=== PATIENT | female | born 1950 | race Caucasian/White ===

== ENCOUNTER → 2017-09-15 | Outpatient (CLI) | payer OTHER ==
[~2017-09-15] MED LIST: LORA0.5T PO; TRAM50 PO; ZOLP5TAB3 PO
[2017-09-15 12:28] LABS: AUTOMATED NEUTROPHIL # 4.6 TH/MM3 (1.8-7.7); BASOPHIL % 0.4 % (0.0-2.0); EOSINOPHIL # 0.1 TH/MM3 (0-0.4); EOSINOPHIL % 1.8 % (0.0-4.0); HEMATOCRIT 39.3 % (35.0-46.0); HEMO FLAGS DIFF FINAL; LYMPH % 28.8 % (9.0-44.0); LYMPHOCYTE # 2.2 TH/MM3 (1.0-4.8); MEAN CELL VOLUME 87.7 FL (80.0-100.0); MEAN CORPUSCULAR HEMOGLOBIN 30.3 PG (27.0-34.0); MEAN CORPUSCULAR HGB CONC 34.5 % (32.0-36.0); MONO % 10.2 % (0.0-8.0); NEUT % 58.8 % (16.0-70.0); PLATELET COUNT 285 TH/MM3 (150-450); RED BLOOD COUNT 4.47 MIL/MM3 (4.00-5.30); RED CELL DISTRIBUTION WIDTH 13.2 % (11.6-17.2); WHITE BLOOD COUNT 7.8 TH/MM3 (4.0-11.0)
[2017-09-15 12:39] LABS: APTT (PATIENT) 29.3 SEC (24.3-30.1); PROTHROMBIN TIME - PATIENT 10.7 SEC (9.8-11.6)
[2017-09-15 12:57] LABS: ALT (GPT) 18 U/L (10-53); ANION GAP 7 MEQ/L (5-15); AST (GOT) 16 U/L (15-37); BICARBONATE 27.8 MEQ/L (21.0-32.0); BLOOD UREA NITROGEN 13 MG/DL (7-18); CHLORIDE 102 MEQ/L (98-107); GLOMERULAR FILTRATION RATE 77 ML/MIN (>89); GLUCOSE,FASTING 109 MG/DL (74-99); SODIUM (NA) 137 MEQ/L (136-145)
[2017-09-15 12:59] LABS: ALKALINE PHOSPHATASE 34 U/L (45-117); TOTAL BILIRUBIN ADULT 0.6 MG/DL (0.2-1.0)
[2017-09-15 13:11] LABS: BLOOD, URINE NEG (NEG); COMMENT (UR) CULT NOT INDICATED; CULTURE IF INDICATED CULT NOT INDICATED; GLUCOSE,URINE NEG (NEG); KETONE, URINE NEG (NEG); MUCUS URINE FEW /lpf (OCC); NITRITE,URINE NEG (NEG); SQUAMOUS EPITHELIAL CELL URINE <1 /hpf (0-5); TRANSITIONAL EPI CELLS, URINE <1 /hpf; URINE COLOR LIGHT-YELLOW (YELLW/STRAW)
--- NOTE | 2017-09-15 14:52 | RADRPT ---
EXAM DATE/TIME: 09/15/2017 13:10 [place] COMPARISON: No previous studies available for comparison. INDICATIONS : Evaluate for pneumonia, pneumothorax, or communicable disease. Pre op for sigmoid resection on 017. MEDICAL HISTORY : Diverticulitis. Hernia. SURGICAL HISTORY : Hysterectomy. ENCOUNTER: Initial ACUITY: 1 day PAIN SCORE: 0/10 LOCATION: Bilateral chest FINDINGS: PA and lateral views of the chest demonstrate the lungs to be symmetrically aerated without evidence of mass, infiltrate or effusion. The cardiomediastinal contours are unremarkable. Osseous structure s are intact. CONCLUSION: No acute cardiopulmonary process. Isaac Martinez MD on September 15, 2017 at 14:50 Board Certified Radiologist. This report was verified electronically.
--- NOTE | 2017-09-15 20:04 | EKG ---
Date Performed: 09/15/2017 Time Performed: 12:12:44 PTAGE: 67 years EKG: Sinus rhythm WITH SINUS ARRHYTHMIA NORMAL ECG No significant change from prior electrocardiogram. DOCTOR: Jhonny Villa Interpretating Date/Time 09/15/2017 20:02:41
== END ==
LOC: CPRE 11:49
PROVIDERS: ATTEND Colon & Rectal Surgery
DX: Z01.810 Encounter for preprocedural cardiovascular examination (principal); Z01.811 Encounter for preprocedural respiratory examination; Z01.812 Encounter for preprocedural laboratory examination; K57.32 Diverticulitis of large intestine without perforation or abscess without bleeding
CPT/HCPCS: 36415; 71020; 80053; 81001; 85025; 85610; 85730; 93005

== ENCOUNTER 2017-09-18 08:42 | Inpatient (IN) | payer OTHER, MEDICARE ==
[~2017-09-18] VITALS: Ht 171.4 cm; Wt 81.4 kg
[~2017-09-18 08:42] MED LIST changes: -TRAM50 PO
[2017-09-18] MEDS ORDERED: METOPROLOL TARTRATE 25 MG TAB PO PRN (11:15)
[2017-09-18] MEDS ORDERED: INSULIN HUMAN REGULAR 1,000 UNITS/10 ML VIAL SQ PRN (11:15)
[2017-09-18] MEDS ORDERED: HEPARIN SODIUM - SQ 10,000 UNITS/ML VIAL SQ SCH (11:15)
[2017-09-18] MEDS ORDERED: CHLORHEXIDINE GLUCONATE 2 % 1 PACK (2 CLOTHS) TOPICAL PRN (11:15)
[2017-09-18] MEDS ORDERED: LACTATED RINGER'S 1000 ML IV PRN (11:15)
[2017-09-18] MEDS ORDERED: SODIUM CHLORID 0.9% 500 ML IV PRN (11:15)
[2017-09-18] MEDS ORDERED: ceFAZolin 2 GM PREMIX 50 ML IV SCH (11:15)
[2017-09-18] MEDS ORDERED: DEXT 5%-NACL 0.9% 1000 ML INJ 1,000 ML IV SCH (11:15)
[2017-09-18] MEDS ORDERED: METRONIDAZOLE 500 MG/100 ML ISONTONIC SOLN IV SCH (11:15)
[2017-09-18] MEDS ORDERED: POVIDONE IODINE 5% (ANTISEPSIS KIT) 4 APPLICATIONS EACH NARE PRN (11:15)
[2017-09-18] MEDS ORDERED: PHENYLEPH/NS 1000 MCG/10 ML SYR IV ONE (12:00)
[2017-09-18] MEDS ORDERED: ePHEDrine/NS 25 MG/5 ML SYR IV ONE (12:00)
[2017-09-18] MEDS ORDERED: MIDAZOLAM HCL 2 MG/2 ML VIAL IV ONE (12:00)
[2017-09-18] MEDS ORDERED: ONDANSETRON HCL 4 MG/2 ML VIAL IV PUSH ONE (12:00)
[2017-09-18] MEDS ORDERED: VECURONIUM BROMIDE 20 MG VIAL IV ONE (12:00)
[2017-09-18] MEDS ORDERED: DEXAMETHASONE SOD PHOS 4 MG/ML VIAL IV ONE (12:00)
[2017-09-18] MEDS ORDERED: PROPOFOL 200 MG/20 ML AMP IV ONE (12:00)
[2017-09-18] MEDS ORDERED: ceFAZolin INJ 1,000 MG VIAL IV ONE (12:00)
[2017-09-18] MEDS ORDERED: ROCURONIUM INJ 50 MG/5 ML SYRINGE IV PUSH ONE (12:00)
[2017-09-18] MEDS ORDERED: LIDOCAINE HCL 1% PF 5 ML SYRINGE OTHER ONE (12:00)
[2017-09-18] MEDS ORDERED: SODIUM CHLOR 0.9% 1000 ML INJ 1,000 ML IV ONE (12:00)
[2017-09-18] MEDS ORDERED: APREPITANT 40 MG CAP ONE (12:14)
[2017-09-18] MEDS ORDERED: SCOPOLAMINE 1.5 MG PATCH ONE (13:07)
--- NOTE | 2017-09-18 13:25 | PD.HP.UP ---
H&P Update Note The Pre-Admit History and Physical Examination regarding the above named patient was reviewed (including, but not limited to, vital signs, heart, lungs, co-morbid conditions), and upon re-examination it is noted that: the patient's condition has not significantly changed since the last examination. Angelica Vang MD Sep 18, 2017 13:24
[2017-09-18] MEDS ORDERED: ACETAMINOPHEN 1000 MG/100 ML 100 ML IV ONE (13:45)
[2017-09-18] MEDS ORDERED: SUGAMMADEX SODIUM 200 MG/2 ML VIAL IV PUSH ONE ×2 (14:58)
[2017-09-18] MEDS ORDERED: HYDROmorphone HCL PF 2 MG/ML VIAL ONE (15:00)
--- NOTE | 2017-09-18 15:18 | PD.OP ---
Operative Report Date of Surgery: Sep 18, 2017 Preoperative Diagnosis: (1) Diverticulitis Postoperative Diagnosis: (1) Diverticulitis Procedure: Cystoscopy and placement of bilateral ureteral catheters Anesthesia: General Surgeon: Colten Qureshi Interactive Project Manager(s): None Operation and Findings: Indication for procedure: Consult intraoperatively to pass bilateral ureteral catheters to aid in visualization of this patient's ureters during her colorectal procedure. Urologic surgery procedures in detail: Concurrent with the colorectal surgeon, I proceeded with cystoscopy and placement of bilateral ureteral catheters as follows. Initially cystoscopic evaluation was performed utilizing the rigid cystoscope with the 30 lens and 22 Ivorian sheath. Both right and left ureteral orifices were in correct anatomic position effluxing clear yellow urine. There are no bladder mucosal lesions, calculi or diverticula formation. There were no areas suspicious for bladder tumor formation or fistula formation. I then proceeded with passing a sensor 0.035 wire up the patient's left ureter to a small amount of resistance was met. A 6 Ivorian open-ended catheter was then advanced over the wire 25 cm in a cephalad direction. With the catheter in place, the wire was withdrawn and introduced through a secondary site via the cystoscope. In similar fashion the contralateral side was accomplished. With both catheters in place, the cystoscope and wire were withdrawn and a 16 Ivorian 10 cc Phillips catheter was placed. Both ureteral catheters were anchored to the Phillips via a connector in all 3 catheters placed to gravity drainage. This completes urologic surgery portion of combined procedures on this patient. Colten Qureshi MD Sep 18, 2017 15:18
[2017-09-18] MEDS ORDERED: BENZOCAINE 6 MG/MENTHOL 10 MG LOZENGE BUCCAL PRN (18:30)
[2017-09-18] MEDS ORDERED: ENALAPRILAT 2.5 MG/2 ML VIAL IV PUSH PRN (18:30)
[2017-09-18] MEDS ORDERED: Post-op Orders (for Pharmacy) MISC XX ONE (18:30)
[2017-09-18] MEDS ORDERED: KETOROLAC TROMETHAMINE 30 MG/ML (IVP) VIAL IVP PRN (18:30)
[2017-09-18] MEDS ORDERED: ENALAPRILAT 1.25 MG/ML VIAL IV PUSH PRN (18:30)
[2017-09-18] MEDS ORDERED: diphenhydrAMINE HCL 50 MG/ML VIAL IV PUSH PRN (18:30)
[2017-09-18] MEDS ORDERED: ACETAMINOPHEN/HYDROcodone 325 MG/5 MG TAB PO PRN ×2 (18:30)
[2017-09-18] MEDS ORDERED: NALOXONE HCL 0.4 MG/ML AMP IV PUSH PRN ×2 (18:30→19:30)
[2017-09-18] MEDS ORDERED: POTASSIUM CHLOR 20 MEQ PREMIX 100 ML IV PRN (18:30)
[2017-09-18] MEDS ORDERED: ACETAMINOPHEN 325 MG TAB PO PRN (18:30)
[2017-09-18] MEDS ORDERED: POTASSIUM CHLOR 40 MEQ PREMIX 100 ML IV PRN (18:30)
[2017-09-18] MEDS: D5-NS + KCL 20 MEQ INJ 1,000 ML IV SCH (19:00)
[2017-09-18] MEDS ORDERED: HYDROmorphone HCL PCA 6 MG/30 ML IV ONE (19:17)
--- NOTE | 2017-09-18 19:19 | MP ---
cc: TUAN VANG M.D., JESSIE, DR. DATE OF SURGERY 09/18/17 PREOPERATIVE DIAGNOSIS Chronic diverticulitis POSTOPERATIVE DIAGNOSIS Chronic diverticulitis PROCEDURE 1. Robotic/laparoscopic extensive lysis of adhesions. 2. Robotic sigmoid colectomy 3. Robotic takedown of splenic flexure. SURGEON Ricardo Vang MD CONTRACTS ATTORNEY [place] ANESTHESIA General per ET tube ESTIMATED BLOOD LOSS Less than 50 mL OPERATIVE INDICATIONS The patient is a 67-year-old female with a history of multiple repeated attacks of diverticulitis. OPERATIVE FINDINGS Inflamed sigmoid colon with adhesions to the left lateral pelvic sidewall, adhesions of omentum to the descending colon and the left pelvic sidewall. PROCEDURE IN DETAIL The patient was brought to the operating room and placed in the supine position. After induction of general anesthesia, the patient was placed in Praneeth stirrups and all bony prominences were carefully padded. Skin of the anterior abdominal wall as well as perineal area was then prepped and draped in usual sterile fashion. Dr. Qureshi came in and performed cystoscopy with placement of bilateral ureteral catheters, please see his operative note for details. A site was then chosen for the camera being located just to the right and above the umbilicus. A 10-/12 trocar was placed at this site under direct vision using a laparoscope. CO2 insufflation was then begun and a brief abdominal survey was performed. Nothing was noted that would preclude the robotic approach. A site was then chosen for the #1 port just inside the right anterior superior iliac spine. A 10-12 port was placed at this location under direct vision using a laparoscope. The #5 assist port was placed just under the right costal margin equal distance between the #1 and the camera port. The patient was hydroplaned with the head down and to the right. The small bowel was brought up and out of the pelvis and the omentum was brought partly up but then was noted to be somewhat adherent to the left pelvic sidewall. The length was evaluated though and I did feel that it would be necessary to take down the splenic flexure and so the remaining ports were placed as follows: #3 port along DaVinci was placed in the left anterior axillary line in line with the umbilicus and the #2 port was placed four fingerbreadths above the umbilical line in the left mid clavicular line. This was also along DaVinci port. the robot was then docked. The sigmoid colon was retracted down to the left and the peritoneum on the right was scored. Dissection continued in this plane behind the inferior mesenteric vessels until the left ureter was clearly identified and swept away from the specimen. The lateral attachments of the sigmoid colon in addition to the adhesions were then dissected free using electrocautery until our previous dissection was met. A window was then made around the vessels and a white load of the echelon endostapler was placed across the vessels at this level. This was closed, held for 30 seconds, fired and removed. The dissection continued in the posterior plane and then dissecting the descending colon mesentery from posterior peritoneum up to the level of the pancreas. The lateral peritoneal attachments of the descending all were then dissected free. The omentum was carefully dissected free from the surface of the descending colon and the omentum was then pulled away from the transverse colon. The lesser sac was entered using electrocautery. Dissection continued up and around the splenic flexure thus freeing the transverse colon, descending colon and proximal sigmoid. the pelvis posteriorly. Dissection was continued down to the level of the lower rectum and up and around the right and left side. She was noted to have diverticula quite low in the pelvis with a low rectosigmoid junction. ___ we had full mobility, a sponge stick was then placed in the rectum. A site was chosen for division of the rectum just distal to the rectosigmoid junction. The mesentery at this level was divided using the harmonic scalpel. The blue load [employer] endostapler was placed across the bowel at this level. This was closed and fired, thus resecting the bowel. An attempt was made to advance the 33 EEA stapler, but it did not so we changed to a 29 EEA stapler. This came up nicely to the rectal stump and a small amount of fibrofatty tissue was cleared of this circumferentially. I evaluated fir length and found that I had adequate length to perform the anastomosis and the robot was undocked. An 8 cm incision was made in the suprapubic area along her previous abdominoplasty incision. Using electrocautery, dissection was carried down to the fascia of the anterior abdominal wall. This was divided using the electrocautery. The medial fibers of the rectus abdominis muscle were divided as was the peritoneum posteriorly. A wound protector was then placed and the proximal stapled end of the bowel was brought up and out through the incision. A site was chosen for proximal division of the bowel where the bowel appeared pink and healthy circumferentially. The mesentery at this level serially divided and ligated using 0 Vicryl ties and a pursestring stapling device was placed across the bowel. The distal bowel was occluded with Nadiya clamp. The bowel was amputated and taken to a back table where it was later opened. The anvil from the 29 EEA stapler was placed into the cut end of the bowel and the previously placed pursestring suture was then secured. This was then replaced into the peritoneal cavity. The stapler was again brought up through the anus and up to the rectal stump, but it did not care for the angle it was lying in so I did elect to dissect back an additional 2-3 cm and a contour stapler was placed across the bowel at this level. This allowed a nice orientation to the anastomosis. The spike was then advanced just posterior to the staple line. The anvil was into the spike being sure that the bowel was not twisted. The stapler was then closed, held for 30 seconds, fired and removed thus creating enteroenterotomy. The enteroenterotomy appeared pink and healthy circumferentially and both anastomotic rings were complete. A small amount warm normal saline was placed in the pelvis and the proximal bowel was occluded with digital pressure. Air was insufflated into the rectum until gentle tension was noted on the anastomosis with no sign of any leakage noted. The anastomosis lay in a nice orientation with no sign of strain. The posterior fascia at the suprapubic incision was closed in a running fashion using #1 PDS and the anterior fascia was closed in a running fashion using #1 PDS. The wound was copiously irrigated with warm normal saline and the skin was closed in a running subcuticular fashion using 3-0 Vicryl. The CO2 insufflation was resumed. The 10-12 trocar sites were then closed with a crossbow suture and a #1 PDS suture. These were placed but not secured. The anastomosis was again visualized and appeared in a nice orientation without tension. There was no sign of any significant bleeding. The CO2 was desufflated to the extent possible and the previously placed fascial sutures were then secured. The wounds were copiously irrigated with warm normal saline. The skin was closed in an interrupted subcuticular fashion with 3-0 Vicryl. Steri-Strips and sterile dressings were then applied. The right ureteral stent was removed. All sponge, needle and instrument counts were correct and the patient was returned to the post anesthesia care unit in stable condition. MD KRISTAL Weiss/ /6:21 PM /6:46 PM
[2017-09-18 19:20] LABS: AUTOMATED NEUTROPHIL # 13.3 TH/MM3 (1.8-7.7); BASOPHIL % 0.2 % (0.0-2.0); EOSINOPHIL % 0.2 % (0.0-4.0); HEMATOCRIT 33.5 % (35.0-46.0); HEMO FLAGS DIFF FINAL; LYMPH % 10.4 % (9.0-44.0); LYMPHOCYTE # 1.6 TH/MM3 (1.0-4.8); MEAN CELL VOLUME 87.8 FL (80.0-100.0); MEAN CORPUSCULAR HEMOGLOBIN 30.2 PG (27.0-34.0); MEAN CORPUSCULAR HGB CONC 34.4 % (32.0-36.0); MONO % 2.3 % (0.0-8.0); NEUT % 86.9 % (16.0-70.0); PLATELET COUNT 313 TH/MM3 (150-450); RED BLOOD COUNT 3.82 MIL/MM3 (4.00-5.30); WHITE BLOOD COUNT 15.3 TH/MM3 (4.0-11.0)
[2017-09-18] MEDS ORDERED: *HYDROmorphone PF 1 MG VIAL PERIprocedural Use ONLY ONE (19:22)
[2017-09-18] MEDS ORDERED: *ONDANSETRON 4 MG VIAL PERIprocedural Use ONLY ONE (19:29)
[2017-09-18] MEDS ORDERED: DO NOT ADM ANY ANTICOAGULANT DRUGS PRN (19:30)
[2017-09-18 19:38] LABS: POTASSIUM 3.6 MEQ/L (3.5-5.1)
[2017-09-18] MEDS: HYDROmorphone HCL PCA 6 MG/30 ML IV SCH (19:42)
[2017-09-18 20:47] VITALS: BP 135/69; PULSE 93; RESP 16; TEMP 98.7; O2SAT 96
[2017-09-18] MEDS ORDERED: LORazepam 2 MG/ML VIAL IV PRN (21:30)
[2017-09-18 22:00] VITALS: PULSE 94
[2017-09-18 23:00] VITALS: PULSE 82
[2017-09-18] MEDS: metroNIDAZOLE 500 MG INJ 100 ML IV SCH (23:04)
[2017-09-18] MEDS: ONDANSETRON HCL 4 MG/2 ML VIAL IV PUSH PRN (23:32)
[2017-09-18] MEDS: PCA - TOTAL MG DILAUDID DELIVERED PER SHIFT SCH (23:32)
[2017-09-18 23:55] VITALS: BP 121/70; PULSE 96; RESP 16; TEMP 98.7; O2SAT 98
[2017-09-19] VITALS (24 sets, daily range): BP systolic 102–124; BP diastolic 51–81; PULSE 62–92; RESP 16–18; TEMP 97.7–98.7; O2SAT 92–100
[2017-09-19] MEDS: D5-NS + KCL 20 MEQ INJ 1,000 ML IV SCH ×4 (01:40→21:40)
[2017-09-19 04:47] LABS: AUTOMATED NEUTROPHIL # 12.2 TH/MM3 (1.8-7.7); BASOPHIL % 0.1 % (0.0-2.0); HEMATOCRIT 32.1 % (35.0-46.0); HEMO FLAGS DIFF FINAL; LYMPH % 5.3 % (9.0-44.0); LYMPHOCYTE # 0.7 TH/MM3 (1.0-4.8); MEAN CELL VOLUME 88.1 FL (80.0-100.0); MEAN CORPUSCULAR HEMOGLOBIN 30.3 PG (27.0-34.0); MEAN CORPUSCULAR HGB CONC 34.4 % (32.0-36.0); NEUT % 90.6 % (16.0-70.0); PLATELET COUNT 290 TH/MM3 (150-450); RED BLOOD COUNT 3.65 MIL/MM3 (4.00-5.30); RED CELL DISTRIBUTION WIDTH 12.7 % (11.6-17.2); WHITE BLOOD COUNT 13.5 TH/MM3 (4.0-11.0)
[2017-09-19 05:04] LABS: BICARBONATE 27.6 MEQ/L (21.0-32.0)
[2017-09-19] MEDS: HYDROmorphone HCL PCA 6 MG/30 ML IV SCH ×2 (05:15→23:18)
[2017-09-19] MEDS: metroNIDAZOLE 500 MG INJ 100 ML IV SCH ×2 (07:00→16:04)
[2017-09-19] MEDS: PANTOPRAZOLE SODIUM 40 MG VIAL IVP SCH (08:26)
[2017-09-19] MEDS: ONDANSETRON HCL 4 MG/2 ML VIAL IV PUSH PRN ×3 (08:26→20:20)
--- NOTE | 2017-09-19 08:54 | HHI.PR ---
Subjective Remarks POD#1 s/p robotic sigmoid resection slightly anxious, some nausea Objective Vital Signs Date Time Temp Pulse Resp B/P (MAP) Pulse Ox O2 Delivery O2 Flow Rate FiO2 09/19/17 08:31 97 Nasal Cannula 3.00 09/19/17 07:40 97.9 74 16 116/81 (93) 98 09/19/17 05:15 16 09/19/17 05:00 67 09/19/17 04:00 92 09/19/17 03:00 68 09/19/17 02:00 78 09/19/17 01:00 80 09/19/17 00:00 88 09/18/17 23:55 98.7 96 16 121/70 (87) 98 09/18/17 23:32 16 09/18/17 23:00 82 09/18/17 22:00 94 09/18/17 20:47 98.7 93 16 135/69 (91) 96 09/18/17 20:00 96 24 128/71 (90) 97 Nasal Cannula 3 09/18/17 19:45 96 17 123/69 (87) 96 Nasal Cannula 3 09/18/17 19:42 15 09/18/17 19:30 97 16 129/66 (87) 97 Nasal Cannula 3 09/18/17 19:15 99 12 125/68 (87) 97 Nasal Cannula 3 09/18/17 18:57 97.6 107 13 114/71 (85) 98 Nasal Cannula 3 09/18/17 11:37 98.6 78 18 129/81 (97) 100 I/O 09/18/17 09/18/17 09/18/17 09/19/17 09/19/17 09/19/17 07:00 15:00 23:00 07:00 15:00 23:00 Intake Total 2500 ml 1200 ml 50 ml Output Total 470 ml 650 ml Balance 2030 ml 1200 ml -600 ml Intake Oral 50 ml IV Total 1200 ml Other 2500 ml Output Urine Total 450 ml 650 ml Estimated Blood Loss 20 ml Result Diagram: 09/19/1740109/19/17401 Objective Remarks Abdomen soft nondistended, tender Dressings clean/dry/intact blood in urine Assessment and Plan Assessment and Plan Flush romero Hold off on clears until nausea resolved Continue fluids Eye issue seems resolved, no vision changes, slightly tender Angelica Vang MD Sep 19, 2017 08:54
[2017-09-19] MEDS: PCA - TOTAL MG DILAUDID DELIVERED PER SHIFT SCH ×2 (14:00→22:00)
[2017-09-19] MEDS: HEPARIN SODIUM - SQ 10,000 UNITS/ML VIAL SQ SCH (18:50)
[2017-09-20] VITALS (21 sets, daily range): BP systolic 120–170; BP diastolic 60–81; PULSE 64–96; RESP 16–20; TEMP 97.6–99.3; O2SAT 93–96
[2017-09-20] MEDS: D5-NS + KCL 20 MEQ INJ 1,000 ML IV SCH ×4 (00:30→22:02)
[2017-09-20] MEDS: ONDANSETRON HCL 4 MG/2 ML VIAL IV PUSH PRN ×4 (03:49→21:00)
[2017-09-20] MEDS: HEPARIN SODIUM - SQ 10,000 UNITS/ML VIAL SQ SCH ×2 (06:52→18:06)
[2017-09-20 07:42] LABS: AUTOMATED NEUTROPHIL # 7.8 TH/MM3 (1.8-7.7); BASOPHIL % 0.2 % (0.0-2.0); EOSINOPHIL % 0.2 % (0.0-4.0); HEMATOCRIT 29.3 % (35.0-46.0); HEMO FLAGS DIFF FINAL; LYMPH % 24.3 % (9.0-44.0); LYMPHOCYTE # 2.8 TH/MM3 (1.0-4.8); MEAN CORPUSCULAR HEMOGLOBIN 30.2 PG (27.0-34.0); MEAN CORPUSCULAR HGB CONC 33.9 % (32.0-36.0); MONO % 8.2 % (0.0-8.0); NEUT % 67.1 % (16.0-70.0); PLATELET COUNT 248 TH/MM3 (150-450); RED BLOOD COUNT 3.29 MIL/MM3 (4.00-5.30); RED CELL DISTRIBUTION WIDTH 13.3 % (11.6-17.2); WHITE BLOOD COUNT 11.6 TH/MM3 (4.0-11.0)
[2017-09-20] MEDS: PANTOPRAZOLE SODIUM 40 MG VIAL IVP SCH (08:56)
--- NOTE | 2017-09-20 12:36 | HHI.PR ---
Subjective Remarks POD#2 s/p robotic sigmoid resection less anxious, nausea - responds to zofran Objective Vital Signs Date Time Temp Pulse Resp B/P (MAP) Pulse Ox O2 Delivery O2 Flow Rate FiO2 09/20/17 12:00 84 09/20/17 11:00 98.0 85 16 122/67 (85) 95 09/20/17 10:00 90 09/20/17 09:00 96 09/20/17 09:00 88 09/20/17 08:00 97.6 78 16 120/66 (84) 95 09/20/17 08:00 94 09/20/17 05:00 76 09/20/17 04:00 86 09/20/17 03:47 98.6 90 16 125/60 (81) 95 09/20/17 03:00 70 09/20/17 02:00 68 09/20/17 01:00 64 09/20/17 00:00 64 09/19/17 23:52 98.7 78 16 116/56 (76) 95 09/19/17 23:48 16 09/19/17 23:18 16 09/19/17 23:00 64 09/19/17 22:00 82 09/19/17 22:00 16 09/19/17 21:00 72 09/19/17 20:37 97 Nasal Cannula 2.00 09/19/17 20:00 74 09/19/17 20:00 98.7 70 16 124/72 (89) 92 09/19/17 19:00 70 09/19/17 18:00 75 09/19/17 17:00 70 09/19/17 16:00 75 09/19/17 15:00 82 09/19/17 15:00 97.7 80 18 102/62 (75) 95 I/O 09/19/17 09/19/17 09/19/17 09/20/17 09/20/17 09/20/17 07:00 15:00 23:00 07:00 15:00 23:00 Intake Total 1200 ml 1350 ml 3100 ml 980 ml 540 ml Output Total 650 ml 350 ml 650 ml Balance 1200 ml 700 ml 2750 ml 980 ml -110 ml Intake Oral 50 ml 600 ml 0 ml 240 ml IV Total 1200 ml 1300 ml 2500 ml 980 ml 300 ml Output Urine Total 650 ml 350 ml 650 ml # Bowel Movements 0 0 Result Diagram: 09/20/17 0700 09/20/17 0700 Objective Remarks Abdomen soft nondistended, tender wounds clean Assessment and Plan Assessment and Plan Continue clears d/c telenick decrease IVF transfer to [facility] Angelica Vang MD Sep 20, 2017 12:36
[2017-09-20] MEDS: PCA - TOTAL MG DILAUDID DELIVERED PER SHIFT SCH ×2 (14:00→22:00)
[2017-09-20] MEDS: HYDROmorphone HCL PCA 6 MG/30 ML IV SCH (20:17)
[2017-09-21] VITALS: BP 134/71; PULSE 91; RESP 20; TEMP 96.8; O2SAT 91
[2017-09-21] MEDS: ONDANSETRON HCL 4 MG/2 ML VIAL IV PUSH PRN ×3 (03:06→15:21)
[2017-09-21 03:45] VITALS: BP 153/72; PULSE 82; RESP 20; TEMP 97.7; O2SAT 96
[2017-09-21] MEDS: HEPARIN SODIUM - SQ 10,000 UNITS/ML VIAL SQ SCH ×2 (04:44→18:46)
[2017-09-21] MEDS: PCA - TOTAL MG DILAUDID DELIVERED PER SHIFT SCH ×2 (04:44→13:55)
[2017-09-21 06:50] LABS: AUTOMATED NEUTROPHIL # 6.6 TH/MM3 (1.8-7.7); BASOPHIL # 0.1 TH/MM3 (0-0.2); BASOPHIL % 0.7 % (0.0-2.0); EOSINOPHIL # 0.1 TH/MM3 (0-0.4); HEMATOCRIT 32.1 % (35.0-46.0); HEMO FLAGS DIFF FINAL; LYMPH % 26.7 % (9.0-44.0); LYMPHOCYTE # 2.8 TH/MM3 (1.0-4.8); MEAN CELL VOLUME 88.8 FL (80.0-100.0); MEAN CORPUSCULAR HEMOGLOBIN 29.9 PG (27.0-34.0); MEAN CORPUSCULAR HGB CONC 33.7 % (32.0-36.0); MONO % 8.6 % (0.0-8.0); PLATELET COUNT 289 TH/MM3 (150-450); RED BLOOD COUNT 3.62 MIL/MM3 (4.00-5.30); RED CELL DISTRIBUTION WIDTH 12.7 % (11.6-17.2); WHITE BLOOD COUNT 10.4 TH/MM3 (4.0-11.0)
[2017-09-21 07:13] LABS: BICARBONATE 29.8 MEQ/L (21.0-32.0); POTASSIUM 3.6 MEQ/L (3.5-5.1)
[2017-09-21 08:00] VITALS: BP 148/79; PULSE 90; RESP 18; TEMP 98.1; O2SAT 96
[2017-09-21] MEDS: PANTOPRAZOLE SODIUM 40 MG VIAL IVP SCH (09:14)
[2017-09-21] MEDS: D5-NS + KCL 20 MEQ INJ 1,000 ML IV SCH (09:15)
[2017-09-21 12:00] VITALS: BP_SYST 136; BP_SYST 140; BP_DIAS 77; BP_DIAS 83; PULSE 84; RESP 20; TEMP 97.7; O2SAT 95
--- NOTE | 2017-09-21 15:35 | HHI.PR ---
Subjective Remarks POD#3 s/p robotic sigmoid resection comfortable Objective Vital Signs Date Time Temp Pulse Resp B/P (MAP) Pulse Ox O2 Delivery O2 Flow Rate FiO2 09/21/17 12:00 97.7 84 20 140/83 (102) 95 136/77 (96) 09/21/17 08:00 98.1 90 18 148/79 (102) 96 09/21/17 04:44 18 09/21/17 03:45 97.7 82 20 153/72 (99) 96 09/21/17 00:00 96.8 91 20 134/71 (92) 91 09/20/17 23:37 98.9 90 20 170/81 (110) 96 09/20/17 22:00 16 09/20/17 20:20 93 21 09/20/17 20:17 16 09/20/17 20:00 99.3 88 18 140/71 (94) 96 09/20/17 18:00 89 09/20/17 17:00 84 09/20/17 16:00 82 I/O 09/20/17 09/20/17 09/20/17 09/21/17 09/21/17 09/21/17 06:59 14:59 22:59 06:59 14:59 22:59 Intake Total 0 ml 1760 ml 850 ml Output Total 650 ml 1550 ml 900 ml Balance 0 ml 1110 ml -700 ml -900 ml Intake Oral 0 ml 240 ml 530 ml IV Total 1520 ml 320 ml Output Urine Total 650 ml 1300 ml 900 ml Emesis 250 ml # Bowel Movements 0 0 Result Diagram: 09/21/1724 09/21/1724 Objective Remarks Abdomen soft nondistended, tender wounds clean Assessment and Plan Assessment and Plan Advance diet HL IV d/c DROP CLIPPER Advance diet Angelica Vang MD Sep 21, 2017 15:35
[2017-09-21 16:00] VITALS: BP 137/74; PULSE 83; RESP 20; TEMP 98.4; O2SAT 98
[2017-09-21 20:00] VITALS: BP 147/69; PULSE 85; RESP 18; TEMP 99.2; O2SAT 96
[2017-09-22] VITALS: BP 142/75; PULSE 78; RESP 20; TEMP 98; O2SAT 96
[2017-09-22] MEDS ORDERED: traMADol HCL 50 MG TAB PO PRN (01:00)
[2017-09-22] MEDS: traMADol HCL 50 MG TAB PO PRN ×2 (02:37→11:08)
[2017-09-22] MEDS: ONDANSETRON HCL 4 MG/2 ML VIAL IV PUSH PRN ×2 (02:38→08:40)
[2017-09-22 04:00] VITALS: BP 139/77; PULSE 69; RESP 20; TEMP 97.6; O2SAT 96
[2017-09-22] MEDS: HEPARIN SODIUM - SQ 10,000 UNITS/ML VIAL SQ SCH (06:33)
[2017-09-22 08:00] VITALS: BP 142/74; PULSE 73; RESP 17; TEMP 95.2; O2SAT 95
[2017-09-22] MEDS: PANTOPRAZOLE SODIUM 40 MG VIAL IVP SCH (08:43)
[2017-09-22] MEDS ORDERED: INFLUENZA VIRUS VACCINE (QUADRIVALENT) 0.5 ML SYR IM ONE (10:00)
[2017-09-22] MEDS ORDERED: PNEUMOCOCCAL POLYVALENT INJ 25 MCG/0.5 ML SYR IM ONE (10:00)
[2017-09-22 12:00] VITALS: BP 140/72; PULSE 91; RESP 18; TEMP 96.7; O2SAT 96
[2017-09-22 12:08] VITALS: RESP 18
--- NOTE | 2017-09-22 12:51 | HHI.PR ---
Subjective Remarks POD#4 s/p robotic sigmoid resection comfortable Objective Vital Signs Date Time Temp Pulse Resp B/P (MAP) Pulse Ox O2 Delivery O2 Flow Rate FiO2 09/22/17 08:00 95.2 73 17 142/74 (96) 95 09/22/17 04:00 97.6 69 20 139/77 (97) 96 09/22/17 00:00 98.0 78 20 142/75 (97) 96 09/21/17 20:00 99.2 85 18 147/69 (95) 96 09/21/17 16:00 98.4 83 20 137/74 (95) 98 I/O 09/21/17 09/21/17 09/21/17 09/22/17 09/22/17 09/22/17 07:00 15:00 23:00 07:00 15:00 23:00 Intake Total 1920 ml 720 ml Output Total 900 ml 2400 ml 800 ml Balance -900 ml -480 ml -80 ml Intake Oral 1920 ml 720 ml Output Urine Total 900 ml 2400 ml 800 ml Result Diagram: 09/21/17 0524 09/21/17 0524 Objective Remarks Abdomen soft nondistended, tender wounds clean Assessment and Plan Assessment and Plan Home today [place] 3 weeks Angelica Vang MD Sep 22, 2017 12:51
[2017-09-22] MEDS ORDERED: TRAM50 PO (12:53)
== END 2017-09-22 14:40 | disposition home or self-care (01) | DRG 331 ==
LOC: HSDI 10:45 → HCPC 20:05 → N07B 09-20 23:15
PROVIDERS: ADMIT Colon & Rectal Surgery; ATTEND Colon & Rectal Surgery
PROC: 0DNM4ZZ Release Descending Colon, Percutaneous Endoscopic Approach (ICD-10-PCS; 2017-09-18)
PROC: 0DNU4ZZ Release Omentum, Percutaneous Endoscopic Approach (ICD-10-PCS; 2017-09-18)
PROC: 8E0W4CZ Robotic Assisted Procedure of Trunk Region, Percutaneous Endoscopic Approach (ICD-10-PCS; 2017-09-18)
PROC: 0T9880Z Drainage of Bilateral Ureters with Drainage Device, Via Natural or Artificial Opening Endoscopic (ICD-10-PCS; 2017-09-18)
PROC: 0DTN0ZZ Resection of Sigmoid Colon, Open Approach (ICD-10-PCS; principal; 2017-09-18 14:13)
PROC: 0DNW4ZZ Release Peritoneum, Percutaneous Endoscopic Approach (ICD-10-PCS; 2017-09-18 14:13)
DX: K57.32 Diverticulitis of large intestine without perforation or abscess without bleeding (principal); K66.0 Peritoneal adhesions (postprocedural) (postinfection); F41.9 Anxiety disorder, unspecified; Z87.891 Personal history of nicotine dependence; Z23 Encounter for immunization
CPT/HCPCS: 36415; 71020; 80048; 80053; 81001; 85025; 85610; 85730; 86850; 86900; 86901; 88307; 90686; 90732; 93005; 94150; C1769; C9113; J0131; J0690; J1100; J1170; J1200; J1644; J2250; J2370; J2405; J3010; J3480; J7030; J8501; Q2038